=== PATIENT | female | born 1980 | race Caucasian/White ===

== ENCOUNTER 2017-12-10 19:14 | Emergency (ER) | payer SELFPAY ==
--- NOTE | 2017-12-10 19:28 | UC ---
HPI BURN - HPI Summary HPI Summary: 37 y/o female presents to the urgent care c/o red rash in both lower legs s/p oversparying using a multipurpose ship cleaner at work this morning at 1030. 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 About 1 hr later she saw a red rash that was burning and itching. As soon as she got home she change her clothes and washed her legs w/ plenty o water. She has noticed rash is getting bigger. Pt is allergic to multiple environmental allergens, but didn't think she will be allergic to that ship cleaner sicne everybody uses it work. Pt brought the Safety Data sheet of the ship cleaner where it states it is safe to use w/o gloves. Pain is 8/10. She took a Tylenol Po at 1730pm. Pt denies SOB, throat swelling or tightening, chest pain, abdominal pain, N/V/D. Pt is UTD w/ Tetanus vaccine. - History of Current Complaint Stated Complaint: BURN ON LEG Time Seen by Provider: 12/10/17 19:26 Hx Obtained From: Patient Hx Last Menstrual Period: 3 WEEKS AGO Occurred: Hours Ago - 10 hrs Length of Exposure: Seconds Onset Severity: Mild Current Severity: Moderate Pain Intensity: 8 Pain Scale Used: 0-10 Numeric Location: Other - B/L lower legs Character: Chemical - [employer] multipurpose surface ship cleaner, Erythema Aggravating Factor(s): Other - touch Alleviating Factor(s): Cool Soaks Associated Signs & Symptoms: Positive: Negative. Negative: SOB, Cough Occupational Injury: Yes - Allergy/Home Medications Allergies/Adverse Reactions: Allergies Allergy/AdvReac Type Severity Reaction Status Date / Time amoxicillin Allergy Severe Anaphylatic Verified 12/10/17 19:32 Shock clavulanic acid Allergy Severe Anaphylatic Verified 12/10/17 19:32 Shock ALLESE Allergy Severe Anaphylatic Uncoded 12/10/17 19:32 Shock Home Medications: Home Medications buPROPion SR TAB* [Wellbutrin SR TAB*] 100 mg PO 12/10/17 [History] PMH/Surg Hx/FS Hx/Imm Hx Previously Healthy: Yes Endocrine History: Hypothyroidism - Surgical History Surgical History: Yes Surgery Procedure, Year, and Place: TUBAL LIGATION. WRIST SURGERY FOR CARPAL TUNNEL & GANGLION CYST - Family History Known Family History: Positive: Diabetes - Social History Occupation: Employed Full-time Lives: With Family Substance Use Type: None - Immunization History Hx Tetanus, Diphtheria Vaccination: Yes Review of Systems Constitutional: Negative Skin: Other - B/L legs w/ red rash taht if burning and itches Eyes: Negative ENT: Negative Respiratory: Negative Cardiovascular: Negative Gastrointestinal: Negative Genitourinary: Negative Motor: Negative Neurovascular: Negative Musculoskeletal: Other: - B/l leg pain Neurological: Negative Psychological: Negative Is Patient Immunocompromised?: No All Other Systems Reviewed And Are Negative: Yes Physical Exam - Summary Physical Exam Summary: Vital Signs Reviewed: Yes General: well developed, well nourished obesevfemale sitting in the examining table w/o any apparent distress. Eyes: Positive: Conjunctiva Clear - PERRLA, EOMI ENT: Positive: Normal ENT inspection, Hearing grossly normal, Pharynx normal, TMs normal Neck: Positive: Supple, Nontender, No Lymphadenopathy Respiratory: Positive: Chest nontender, Lungs clear, Normal breath sounds Cardiovascular: Positive: RRR, No Murmur, Pulses Normal Abdomen Description: Positive: Nontender, No Organomegaly, Soft. Negative: CVA Tenderness (R), CVA Tenderness (L) Bowel Sounds: Positive: Present Musculoskeletal: Positive: Strength Intact, ROM Intact, No Edema Neurological Exam: Normal Psychological Exam: Normal Skin: Positive: Left distal lower leg w/ an erythematous eruption on the ventral side about 3.0x 2.0cm in size, also the RT lower legs w/ similar,but smaller eruption, no blisters observed, tender to palpation. mild swelling observed. skin blanches w/ pressure, FROM of B/l lower extremities, sensation intact, brisk capillary refill. No involvement of the feet or toes Triage Information Reviewed: Yes Burn Calculation - [place] Formula for Fluid Resuscitation 24 -Hour Fluid Replacement: 0.0 Course/Dx Burn - Course Course Of Treatment: 37 y/o female presents to the urgent care c/o red rash in both lower legs s/p oversparying using a multipurpose ship cleaner at work this morning at 1030. 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 About 1 hr later she saw a red rash that was burning and itching. As soon as she got home she change her clothes and washed her legs w/ plenty o water. She has noticed rash is getting bigger. Pt is allergic to multiple environmental allergens, but didn't think she will be allergic to that ship cleaner sicne everybody uses it work. Pt brought the Safety Data sheet of the ship cleaner where it states it is safe to use w/o gloves. Pain is 8/10. She took a Tylenol Po at 1730pm. Pt denies SOB, throat swelling or tightening, chest pain, abdominal pain, N/V/D. Pt is UTD w/ Tetanus vaccine.Hx obtained. Pt w/ B/l lower legs contact dermatitis or local allergic reaction s/p exposure to a Multipurpose ship cleaner. Pt Px Prednisone PO taper dose Pt tolerated well medication. First dose given at the clinic tonight. Also Rx Bendaryl PO and Ibuprofen PO, and bacitrain oint to alleviate symptoms. Advised to elevate leg. Pt advised if rash increases in size and she develops SOB, or throat swelling to go immediately to the ER for further management. Pt undertstood and agreed w / plan of care. - Differential Dx - Burn Differential Diagnoses: Chemical Burn, Direct Contact Thermal Burn, Ultraviolet Burn - Diagnoses Clinic Provider Diagnoses: 1- Allergic dermatitis s/p ship cleaner detergent at work. 2/ B/L lower leg pain Discharge - Sign-Out/Discharge Documenting (check all that apply): Discharge/Admit/Transfer - D/C home - Discharge Plan Condition: Stable Disposition: HOME Prescriptions: Bacitracin OINTMENT* 1 applic TOPICAL BID #1 tube diPHENhydraMINE PO* [Benadryl PO 25 MG TAB*] 25 mg PO TID PRN #20 tab PRN Reason: pruritus Ibuprofen TAB* [Motrin TAB* 800 MG] 800 mg PO Q6H PRN #30 tab PRN Reason: Pain predniSONE TAB* [Deltasone 20 MG TAB*] 20 mg PO DAILY #8 tab Patient Education Materials: Contact Dermatitis (ED), Chemical Skin Burn (ED) Forms: *Work Release Referrals: Radha aGrrett MD [Primary Care Provider] - 2 Days Additional Instructions: 1- Please apply Bacitracin oint around the rash as directed to avoid infection. 2- Take Prednisone PO taper dose as directed to decrease swelling and alleviate symptoms 3- Take Benadryl PO as directed to alleviate itchiness. and Ibuprofen PO after meals for pain. 4- If you do not improve or if symptoms worsen please return to the urgent care or f/u w/ your PCP for further treatment. - Billing Disposition and Condition Condition: STABLE Disposition: Home
[2017-12-10 19:31] VITALS: BP 129/76
[2017-12-10] MEDS ORDERED: predniSONE TAB* 20 MG PO ONE (20:32)
== END 2017-12-10 20:38 | disposition home or self-care (01) ==
LOC: UCEAST 19:14
DX: T55.1X1A Toxic effect of detergents, accidental (unintentional), initial encounter (principal); L23.5 Allergic contact dermatitis due to other chemical products; Y92.9 Unspecified place or not applicable
CPT/HCPCS: 99212; G0463; J7512

== ENCOUNTER 2018-10-20 19:30 | Emergency (ER) | payer OTHER ==
[2018-10-20 19:46] VITALS: BP 117/80
--- NOTE | 2018-10-20 19:58 | UC ---
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 [employer] Onset/Duration: Gradual Onset, Lasting Days Pain Intensity: 8 Pain Scale Used: 0-10 Numeric Character Of Pain: Aching, Throbbing Aggravating Factor(s): Movement Alleviating Factor(s): Nothing Associated Signs And Symptoms: Positive: Swelling Related History: Dominant Hand Right - Allergies/Home Medications Allergies/Adverse Reactions: Allergies Allergy/AdvReac Type Severity Reaction Status Date / Time amoxicillin Allergy Severe Anaphylatic Verified 12/10/17 19:32 Shock clavulanic acid Allergy Severe Anaphylatic Verified 12/10/17 19:32 Shock ALLESE Allergy Severe Anaphylatic Uncoded 12/10/17 19:32 Shock Home Medications: Home Medications Cholecalciferol TAB* [Vitamin D TAB*] 2,000 unit PO DAILY 10/20/18 [History Confirmed 10/20/18] Levothyroxine TAB* [Synthroid 125 MCG TAB*] 125 mcg PO DAILY 10/20/18 [History Confirmed 10/20/18] PMH/Surg Hx/FS Hx/Imm Hx Previously Healthy: No Endocrine History: Hypothyroidism Psychological History: Depression - Surgical History Surgical History: Yes Surgery Procedure, Year, and Place: TUBAL LIGATION. WRIST SURGERY FOR CARPAL TUNNEL & GANGLION CYST - Family History Known Family History: Positive: Diabetes - Social History Occupation: Employed Full-time Lives: With Family Alcohol Use: Rare Substance Use Type: None Smoking Status (MU): Never Smoked Tobacco - Immunization History Hx Tetanus, Diphtheria Vaccination: Yes Review of Systems All Other Systems Reviewed And Are Negative: Yes Constitutional: Positive: Negative Skin: Positive: Negative Eyes: Positive: Negative ENT: Positive: Negative Respiratory: Positive: Negative Cardiovascular: Positive: Negative Gastrointestinal: Positive: Negative Genitourinary: Positive: Negative Motor: Positive: Negative Neurovascular: Positive: Negative Musculoskeletal: Positive: Arthralgia - LEFT PROXIMAL 4 TH MC DORSAL HAND Neurological: Positive: Negative Psychological: Positive: Negative Is Patient Immunocompromised?: Yes Physical Exam Triage Information Reviewed: Yes Appearance: Well-Appearing, No Pain Distress, Well-Nourished Vital Signs: Initial Vital Signs Temp 97.4 F 10/20/18 19:42 Pulse 64 10/20/18 19:42 Resp 18 10/20/18 19:42 BP 117/80 10/20/18 19:42 Pulse Ox 100 10/20/18 19:42 Vital Signs Reviewed: Yes Eye Exam: Normal Eyes: Positive: Conjunctiva Clear ENT Exam: Normal ENT: Positive: Normal ENT inspection, Hearing grossly normal. Negative: Trismus , Muffled voice, Hoarse voice Dental Exam: Normal Neck exam: Normal Neck: Positive: Supple, Nontender Respiratory Exam: Normal Respiratory: Positive: Chest non-tender, No respiratory distress, No accessory muscle use Cardiovascular Exam: Normal Cardiovascular: Positive: RRR, Pulses Normal, Brisk Capillary Refill Musculoskeletal Exam: Normal Musculoskeletal: Positive: Strength Intact, ROM Intact, No Edema Neurological Exam: Normal Neurological: Positive: Alert, Muscle Tone Normal Psychological Exam: Normal Skin Exam: Normal Diagnostics - Radiology No standard instances Radiology Interpretation Completed By: ED Physician - NO EVIDENCE OF FRACTURE Hand/Wrist Course/Dx - Course Course Of Treatment: SPLINT REST IBUPROFEN FOLLOW WITH ORTHO IF FAILS TO IMPROVE - Differential Dx/Diagnosis Provider Diagnosis: Left hand tendonitis Discharge - Sign-Out/Discharge Documenting (check all that apply): Patient Departure All imaging exams completed and their final reports reviewed: No - Discharge Plan Condition: Stable Disposition: HOME Patient Education Materials: Ibuprofen (By mouth), Tendinitis (ED), R.I.C.E. Treatment (ED) Forms: *Work Release Referrals: Mckayla Parra MD [Medical Doctor] - 3 Days - Billing Disposition and Condition Condition: STABLE Disposition: Home
--- NOTE | 2018-10-21 07:20 | UC ---
- Progress Note Progress Note: Patient Name: GUERO AGUERO Medical Record#: [id number] Ordering Physician: Briana Blanco NP Acct.#: [id number] : 1980 Age: 38 Sex: F Location: [facility] Exam Date: 10/20/181955 ADM Status: DEP ER Order Information: HAND - LEFT MINIMUM 3 VIEWS Accession Number: [id number] CPT: 32899 INDICATION: Left hand injury. TECHNIQUE: 4 views of the left hand were obtained. FINDINGS: The bones are in normal alignment. No fracture is seen. Joint spaces appear maintained. IMPRESSION: NO EVIDENCE FOR FRACTURE. R0 Preliminary Imaging Read R0 <Electronically signed by Darwin Rojas MD in OV> 10/21/18710 Dictated By: Darwin Rojas MD Dictated Date/Time: 10/21/18710 Transcribed Date/Time: 10/21/18708 Copy to: CC:Briana Blanco NP; Radha Garrett MD; Chapin Colón MD Imaging - [facility] Imaging - [facility] Urgent [place] [address] [address] ph ([phone]) ph ([phone]) ph ([phone]) This report is only to be considered final once signed by the Provider(s) as displayed in the "<Electronically Signed by >" field (s). Absence of a signature indicates the report is in a draft status and still needs to be finalized. In the event this document was created by someone other than the signing Provider, the individual initiating the document will be listed in the "Entered by:" or "Dictated by:" hutson. 1 of 1 Course/Dx - Diagnoses Provider Diagnoses: Left hand tendonitis Discharge - Sign-Out/Discharge Documenting (check all that apply): Post-Discharge Follow Up All imaging exams completed and their final reports reviewed: Yes - Discharge Plan Condition: Stable Disposition: HOME Patient Education Materials: Ibuprofen (By mouth), Tendinitis (ED), R.I.C.E. Treatment (ED) Forms: *Work Release Referrals: Mckayla Parra MD [Medical Doctor] - 3 Days - Billing Disposition and Condition Condition: STABLE Disposition: Home
== END 2018-10-20 20:50 | disposition home or self-care (01) ==
LOC: UCEAST 19:30
DX: M77.9 Enthesopathy, unspecified (principal); M79.642 Pain in left hand; E03.9 Hypothyroidism, unspecified; F32.9 Major depressive disorder, single episode, unspecified; Z88.1 Allergy status to other antibiotic agents; Z88.0 Allergy status to penicillin; Z88.8 Allergy status to other drugs, medicaments and biological substances
CPT/HCPCS: 99213; G0463